=== PATIENT | male | born 1960 | race Caucasian/White ===

== ENCOUNTER 2016-10-12 18:34 | Emergency (ER) | payer OTHER ==
[~2016-10-12] VITALS: Ht 172.7 cm; Wt 61.2 kg
--- NOTE | 2016-10-12 18:34 | NUR ---
Patient DEZKaryn NURYS, triaged by RN. Waiting for an available bed.
--- NOTE | 2016-10-12 18:42 | NUR ---
Patient transferred to bed 6 for further care. SCALLOP RAKER evaluating patient at bedside.
[2016-10-12] MEDS ORDERED: ACETAMINOPHEN EXTRA STRENGTH 500 MG TAB ONE ×2 (18:45→18:46)
[2016-10-12 18:46] VITALS: BP 125/86
[2016-10-12] MEDS ORDERED: NACL 0.9% 1,000 ML IV ONE ×2 (19:15)
[2016-10-12] MEDS ORDERED: BACITRACIN OINT 500 UNITS/GM PKT TP ONE (19:15)
[2016-10-12] MEDS ORDERED: NACL 0.9% 2,000 ML IV ONE (19:20)
[2016-10-12] MEDS ORDERED: fentaNYL 0.05 MG/ML VIAL IVP ONE (19:20)
[2016-10-12 19:48] LABS: BASOPHILS # (AUTO) 0.2 K/uL (0.00-0.22); BASOPHILS % (AUTO) 2.8 % (0.0-2.0); EOSINOPHILS # (AUTO) 0.2 K/uL (0-0.4); HEMATOCRIT 37.4 % (36-52); HEMOGLOBIN 11.9 g/dL (12.0-18.0); LYMPHOCYTES # (AUTO) 1.8 K/uL (2.0-11.5); LYMPHOCYTES % (AUTO) 28.4 % (20.5-51.1); MEAN CORPUSCULAR HEMOGLOBIN 31 pg (27-31); MEAN CORPUSCULAR HGB CONC 32 g/dL (33-37); MEAN CORPUSCULAR VOLUME 96 fL (80-94); MONOCYTES # (AUTO) 0.8 K/uL (0.8-1.0); NEUTROPHILS # (AUTO) 3.3 K/uL (1.8-7.7); NEUTROPHILS % (AUTO) 53.8 % (42.2-75.2); PLATELET COUNT (AUTO) 156 K/uL (140-450); RED CELL DISTRIBUTION WIDTH 16.9 % (11.6-13.7); WHITE BLOOD COUNT (AUTO) 6.3 K/uL (4.8-10.8)
--- NOTE | 2016-10-12 19:50 | NUR ---
55 YO MALE BIB EMS FROM [facility] FOR ARM PAIN AND HEADPAIN FROM FALL, AWAKE AND ALERT ON ARRVAL, NO ACUTE DISTRESS. PT DENIES N/V/D; AAOX4 WITH EVEN AND STEADY GAIT; LUNGS CLEAR BL; HR EVEN AND REGULAR; PT DENIES ANY FEVER, CP, SOB, OR COUGH AT THIS TIME; PATIENT STATES PAIN OF 10/10 AT THIS TIME; VSS; PATIENT POSITIONED FOR COMFORT; HOB ELEVATED; BEDRAILS UP X2; BED DOWN. ER MD MADE AWARE OF PT STATUS.
--- NOTE | 2016-10-12 20:00 | NUR ---
Patient noted to have existing wounds upon arrival to ER. Wound covered with dressing. Physician informed.
[2016-10-12 20:04] LABS: ALBUMIN 2.7 g/dL (3.4-5.0); ANION GAP 15.8 (8-16); CALCIUM 8.1 mg/dL (8.5-10.1); CREATININE 0.6 mg/dL (0.7-1.3); POTASSIUM 3.8 mmol/L (3.5-5.1); TOTAL BILIRUBIN 0.3 mg/dL (0.0-1.0); TOTAL PROTEIN, SERUM 8.4 g/dL (6.4-8.2)
[2016-10-12 20:07] LABS: LACTIC ACID 0.9 mmol/L (0.4-2.0)
[2016-10-12 20:10] LABS: PROTHROMBIN TIME 10.4 secs (10.8-13.4)
--- NOTE | 2016-10-12 21:10 | NUR ---
bus pass provided to pt by leobardo
[2016-10-12 21:15] VITALS: BP 124/88
--- NOTE | 2016-10-12 21:15 | NUR ---
Patient given written and verbal discharge instructions and verbalizes understanding. Given copies of tests performed during visit. Patient is awake, alert and oriented. Ambulatory with steady gait. Refuses offer of snf placement. Given list of available shelters in surrounding areas. RX prescriptions given to patient. Homeless Patient Waiver form signed by pt.
== END 2016-10-12 21:15 | disposition home or self-care (01) ==
LOC: MED 18:35
DX: S50.811A Abrasion of right forearm, initial encounter (principal); S00.211A Abrasion of right eyelid and periocular area, initial encounter; S50.311A Abrasion of right elbow, initial encounter; F10.129 Alcohol abuse with intoxication, unspecified; I10 Essential (primary) hypertension; Z86.73 Personal history of transient ischemic attack (TIA), and cerebral infarction without residual deficits; V09.9XXA Pedestrian injured in unspecified transport accident, initial encounter; Y93.89 Activity, other specified; Y92.89 Other specified places as the place of occurrence of the external cause; Y99.8 Other external cause status
CPT/HCPCS: 36415; 70450; 71010; 72125; 80053; 83605; 83690; 83880; 84484; 85025; 85610; 93005; 96361; 96374; 99285; J3010; J7030